=== PATIENT | male | born 1970 | race Caucasian/White ===

== ENCOUNTER 2019-01-30 23:25 | Emergency (ER) | payer OTHER ==
[~2019-01-30] VITALS: Ht 175.3 cm; Wt 69.4 kg
[2019-01-30] MEDS ORDERED: PEPCID AC20 MG (23:48)
[2019-01-31] MEDS ORDERED: ZOFRAN4 MG PO (03:49)
[2019-01-31] MEDS ORDERED: LEVSIN/SL0.125 MG SL (03:49)
== END 2019-01-31 | disposition home or self-care (01) ==
LOC: ER 23:25
DX: K29.70 Gastritis, unspecified, without bleeding (principal)